=== PATIENT | male | born 1985 | race Caucasian/White ===

== ENCOUNTER → 2021-02-10 | Outpatient (CLI) | payer OTHER ==
--- NOTE | 2021-02-10 17:37 | Diagnostic Imaging Report ---
EXAMINATION: Right hand at 3:37 p.m. INDICATION: Injury, hand pain. Three views were obtained. There are no prior studies available for comparison. There are comminuted and slightly displaced fractures involving the mid shafts of the 4th and 5th metacarpals. The 5th metacarpal is the more severely injured. No other fracture or acute bony abnormality is appreciated. This exam is limited however due to the presence of a fiberglass cast about the distal forearm, the wrist and the hand. The soft tissues are unremarkable. IMPRESSION: 1. There are comminuted slightly displaced fractures involving the 4th and 5th metacarpals. There is no acute bony abnormality noted otherwise. 2. If there are previous studies available for comparison they would be helpful. Dictated by: Dictated on workstation # [id number]
== END ==
LOC: RAD FS 15:13
PROVIDERS: ATTEND Nurse Practitioner
DX: S62.324A Displaced fracture of shaft of fourth metacarpal bone, right hand, initial encounter for closed fracture (principal); S62.326A Displaced fracture of shaft of fifth metacarpal bone, right hand, initial encounter for closed fracture; X58.XXXA Exposure to other specified factors, initial encounter
CPT/HCPCS: 73130

== ENCOUNTER → 2021-02-21 | Outpatient (CLI) | payer OTHER ==
--- NOTE | 2021-02-21 16:50 | Diagnostic Imaging Report ---
HISTORY: Displaced fracture of the fourth and fifth metacarpals. COMPARISON: Radiographs from the same day. TECHNIQUE: Pronated oblique view of the right hand. FINDINGS: Overlying splint material results in suboptimal evaluation of soft tissues and osseous fine detail. In this projection, the fractures of the fourth and fifth metacarpals are less evident. Alignment in this projection appears normal. No other fractures are seen. IMPRESSION: 1. Fractures of the right fourth and fifth metacarpals demonstrate normal alignment on this single projection. Dictated by: Dictated on workstation # [id number]
--- NOTE | 2021-02-21 17:01 | Diagnostic Imaging Report ---
EXAMINATION: Right hand 3 views HISTORY: Fracture. COMPARISON: 02/10/2021. FINDINGS: There is blunted healing displaced fractures of the right fourth and fifth metacarpals. No new fracture is seen. Alignment is unchanged. IMPRESSION: 1. Unchanged alignment of healing displaced fractures of the right fourth and fifth metacarpals. Dictated by: Dictated on workstation # [id number]
== END ==
LOC: RAD FS 13:05
PROVIDERS: ATTEND Nurse Practitioner
DX: S62.324D Displaced fracture of shaft of fourth metacarpal bone, right hand, subsequent encounter for fracture with routine healing (principal); S62.326D Displaced fracture of shaft of fifth metacarpal bone, right hand, subsequent encounter for fracture with routine healing; X58.XXXD Exposure to other specified factors, subsequent encounter
CPT/HCPCS: 73120; 73130